=== PATIENT | female | born 1935 | race Caucasian/White ===

== ENCOUNTER 2016-12-31 05:29 | Day surgery (SDC) | payer OTHER ==
[~2016-12-31] VITALS: Ht 157.5 cm; Wt 74.8 kg
[~2016-12-31 05:29] MED LIST: ASPIRIN325 MG; CALCIUM CITRAT1 EA10; FIBERCON625 MG PO; LISINOPRIL-HCT1 EACH; PREMARIN VAGI42.5 GM; RECLAST5 MG/100 M
[2016-12-31 09:05] VITALS: BP 182/91
[2016-12-31 10:05] VITALS: BP 188/980
[2016-12-31 10:16] VITALS: BP 175/85
== END 2016-12-31 10:20 | disposition home or self-care (01) ==
LOC: SDC 05:29
PROC: 08B43ZZ Excision of Right Vitreous, Percutaneous Approach (ICD-10-PCS; principal; 2016-12-31)
DX: H43.391 Other vitreous opacities, right eye (principal); I10 Essential (primary) hypertension
CPT/HCPCS: J0360; J0690; J3300

== ENCOUNTER 2018-02-24 19:50 | Emergency (ER) | payer OTHER ==
[~2018-02-24] VITALS: Ht 160 cm; Wt 76.7 kg
[2018-02-24 22:32] VITALS: BP 150/73
== END 2018-02-24 22:33 | disposition home or self-care (01) ==
LOC: EME 19:50
DX: S76.312A Strain of muscle, fascia and tendon of the posterior muscle group at thigh level, left thigh, initial encounter (principal); X58.XXXA Exposure to other specified factors, initial encounter; Y93.B9 Activity, other involving muscle strengthening exercises; I10 Essential (primary) hypertension; Z79.82 Long term (current) use of aspirin
CPT/HCPCS: 93971; 99281; 99284